=== PATIENT | male | born 1955 | race Caucasian/White ===

== ENCOUNTER → 2024-03-09 14:59 | Outpatient (BNVA) | payer MEDICARE, SELFPAY | PROVIDERS: Family Provider Nurse Practitioner Family; PCP Nurse Practitioner Family; Visit Provider Podiatrist Foot & Ankle Surgery | DX: M24.571 Contracture, right ankle; M72.2 Plantar fascial fibromatosis | CPT/HCPCS: 73630; 99203 ==